=== PATIENT | female | born 1940 | race Caucasian/White ===

== ENCOUNTER → 2017-02-08 | Outpatient (CLI) | payer BC, MEDICARE ==
[~2017-02-08] MED LIST: ASCORBIC ACID500 MG PO; ASPIRIN PO; BACTRIM DS TABL1 TA1 PO; DIOVAN80 M1 PO; FISH OIL 1,0001 CAP PO; FLAGYL PO; FLAX SEED OIL1000 MG PO; IBUPROFEN PO; LEVAQUIN PO; LIOTHYRONINE SO5 MC1 PO; LIPITOR PO; MULTI-VITAMIN1 TAB PO; OYSTER CALCIUM500 MG PO; PHENERGAN PO; SYNTHROID PO; TOPROL XL PO; VIT E PO; VITEYES; ZEBETA5 MG PO; [UNRECOGNIZED DRUG - REMARK]
--- NOTE | ~2017-02-08 | CT137 ---
[facility] A Service [facility] RADIOLOGY TEXT RESULTS PATIENT: NITA ALONZO LOCATION: [facility] : 36 UNIT #: [id number] AGE: [address]: Qi Bey MD SEX: F ORDER DR: [id number] [place] [id number] O MR#: [id number] Acc #: [id number] NAME: NITA ALONZO : 1940 SEX: F STUDY DATE/TIME: 02/08/2017 11:19 UNIT: [facility] ROOM: STUDY DESCRIPTION: CT Lung Screening annual Attending Physician: Qi Bey M.D. Referring Physician: Qi Bey M.D. Ordering Physician: Qi Bey M.D. Primary Care Physician: Qi Bey M.D. MEDICAL IMAGING REPORT This report is preliminary unless electronic signature is present. EXAM CT lung cancer screening. INDICATION Lung cancer screening. 36 pack-year smoking history. PROCEDURE Unenhanced low-dose CT of the chest performed per lung cancer screening protocol. CTDI is 2.96 mGy. Total DLP 127 mGy-cm. This CT exam was performed with one or more of the following radiation dose reduction techniques: automatic exposure control, adjustment of mA and/or kV according to patient size, and iterative reconstruction. COMPARISON STUDIES None FINDINGS No suspicious pulmonary nodule. No adenopathy. Coronary artery calcification. No acute findings in the included upper abdomen. No aggressive appearing bone lesion. IMPRESSION No suspicious pulmonary nodule. Lung-RADS category 1 negative. Per the BVR-Esvx-ENCG recommendations suggest patient continue with annual low-dose lung cancer screening. Dictated by... Aram Byrd M.D. [facility] A Service [facility] RADIOLOGY TEXT RESULTS PATIENT: NITA ALONZO LOCATION: [facility] : 36 UNIT #: [id number] AGE: [address]: Qi Bey MD SEX: F ORDER DR: THIS IS AN ELECTRONICALLY VERIFIED REPORT Aram Byrd M.D. at 02/08/2017 5:05 PM ALMA/fritz TD: 02/08/2017 14:21 JOB #: [id number] MEDICAL IMAGING REPORT Page 1 of 1
== END | disposition home or self-care (01) ==
LOC: SCT 11:04
DX: F17.210 Nicotine dependence, cigarettes, uncomplicated (principal)
CPT/HCPCS: G0297